=== PATIENT | female | born 1950 | race Caucasian/White ===

== ENCOUNTER → 2016-12-10 | Day surgery (SDC) | payer OTHER ==
[~2016-12-10] MED LIST: LEVOTHYROXINE100 MCG PO; OMEPRAZOLE40 M1 PO; PRISTIQ ER25 MG
--- NOTE | ~2016-12-10 | OR ---
Unit #: [id number] #: [id number] Patient: JIMMY FARIAS [id number] [address] [address] [id number] MR#: [id number] NAME: JIMMY FARIAS ROOM: Date of Procedure: 12/10/2016 Admission Date: 12/10/2016 Surgeon: Daljit Meraz M.D. : 1950 Attending Physician: Daljit Meraz M.D. Primary Care Physician: Naman Aguilar M.D. OPERATIVE REPORT PREOPERATIVE DIAGNOSIS Diarrhea. POSTOPERATIVE DIAGNOSIS Diarrhea. PROCEDURES PERFORMED 1. Colonoscopy to cecum. 2. Multiple random biopsies of colon. ANESTHESIA Monitored anesthesia care. FINDINGS Mild intermittent colitis, mild internal hemorrhoids. SPECIMENS Sent to pathology. COMPLICATIONS None apparent. CONDITION The patient tolerated the procedure well. INDICATIONS FOR PROCEDURE The patient is a 66-year-old white female, who presents at this time with intermittent diarrhea. She presents at this time for evaluation by colonoscopy. DESCRIPTION OF PROCEDURE After obtaining informed consent, the patient was brought to the endoscopy suite and after adequate monitored anesthesia care, had the colonoscope placed through the anus and slowly advanced to the level of the cecum without difficulty with lumen always in view. The cecum was normal as was the ileocecal valve. There was some very mild intermittent patchy colitis throughout the colon. Multiple biopsies were obtained of this area as well as multiple random biopsies. There were no abnormalities otherwise seen in the ascending colon, hepatic flexure, transverse colon, splenic flexure, and descending colon. In the sigmoid colon, there was some intermittent diverticulosis, but no evidence of diverticulitis. Other Unit #: [id number] #: [id number] Patient: JIMMY FARIAS than this, the sigmoid colon was normal as was the rectosigmoid and rectum. On retroflexing in the rectum to the anorectal junction, the patient was found to have some mild internal hemorrhoids. The scope was removed without difficulty. The patient tolerated the procedure well and went from the endoscopy suite to the recovery area in stable condition. RECOMMENDATIONS Diverticular sheet given. High-fiber diet, lots of liquids, tucks or wipes p.r.n. Call Saturday for pathology. Dictated by... Daljit Meraz M.D. SMITA/hakeem TD: 12/10/2016 11:04 JOB #: [id number] CC: Naman Aguilar M.D. [facility] OPERATIVE REPORT Page 1 of 1 X Daljit Meraz MD X PROCEDURE OPERATIVE NOTE
== END | disposition home or self-care (01) ==
LOC: COPS 07:17
DX: K52.9 Noninfective gastroenteritis and colitis, unspecified (principal); K57.30 Diverticulosis of large intestine without perforation or abscess without bleeding; K64.8 Other hemorrhoids; K21.9 Gastro-esophageal reflux disease without esophagitis; E03.9 Hypothyroidism, unspecified; Z79.899 Other long term (current) drug therapy; R13.10 Dysphagia, unspecified; Z82.49 Family history of ischemic heart disease and other diseases of the circulatory system; Z83.42 Family history of familial hypercholesterolemia
CPT/HCPCS: 88305; J2250